=== PATIENT | female | born 1955 | race African-American/Black ===

== ENCOUNTER 2017-08-26 17:12 | Inpatient (IN) | payer BC, OTHER ==
[~2017-08-26] VITALS: Ht 162.6 cm; Wt 92.8 kg
--- NOTE | ~2017-08-26 | EKG ---
[place] [address] [facility] [place] [address] ELECTROCARDIOGRAM REPORT Name: ESTELLE FIGUEROA Jono Room #: 208-P ADM IN M.R.#: [id number] Admission: 08/26/17 Attend Phys: Collette Thao Discharge: Date of : 55 Report #: [id number] THIS REPORT FOR: //name// [facility] ED Test Date: 2017-08-26 Test Time: 17:35:49 Pat Name: ESTELLE FIGUEROA Department: Room: 208 Gender: F Director Of Maintenance: SOREN : 1955 Requested By: Elyssa Monahan Order Number: [id number] MD: Miguel Aguilar Measurements Intervals [place] Rate: 98 P: 48 ND: 179 QRS: -15 QRSD: 110 T: 113 QT: 362 QTc: 463 Interpretive Statements Sinus rhythm Consider left atrial enlargement LVH with IVCD and secondary repol abnrm Anterior ST elevation, probably due to LVH No previous ECG available for comparison Electronically Signed On 08-27-2017 9:01:30 FRONT END DRIVER by Miguel Aguilar [email or web address] <ELECTRONICALLY SIGNED> By: Miguel Aguilar MD, [facility] 08/27/17 0901 1735 1735 Miguel Aguilar MD, [facility] /EPI
--- NOTE | ~2017-08-26 | 2DMMODE ---
[facility] [address] [place] [address] 2 D/M-MODE ECHOCARDIOGRAM Name: CAROLINAESTELLE Room #: 208-P ADM IN M.R.#: [id number] Admission: 08/26/17 Attend Phys: Collette Momin Discharge: Date of : 55 Date of Service: 08/27/17 0958 Report #: [id number] THIS REPORT FOR: //name// APPROVED REPORT Study performed: 08/27/2017 08:43:14 EXAM: Comprehensive 2D, Doppler, and color-flow Echocardiogram Patient Location: Echo lab Room #: 208 Status: routine BSA: 1.98 HR: 103 bpm BP: 149/90 mmHg Rhythm: Tachycardia Other Information Study Quality: Good Indications CHF, elevated troponin, short of breath, htn urgency. 2D Dimensions RVDd: 38.37 mm LVEF(%): 53.31 (>50%) IVSd: 14.86 (7-11mm) LVOT Diam: 18.81 (18-24mm) LVDd: 43.11 mm PWd: 14.46 (7-11mm) Ascending Ao: 35.00 (22-36mm) LVDs: 31.37 (25-40mm) Aortic Root: 30.11 mm Farrar's LVEF: 53.31 % Volumes Left Atrial Volume (Systole) Single Plane 4CH: 72.75 mL Single Plane 2CH: 75.44 mL LA ESV Index: 40.00 mL/m2 Aortic Valve AoV Peak Reece.: 3.95 m/s AO Peak Gr.: 62.26 mmHg AO Mean Gr.: 40.26 mmHg AO V2 Mean: 3.09 m/s AO V2 VTI: 59.91 cm AI Vmax: 3.54 m/s AI Camas: 2.99 m/s2 AI PHT: 343.38 ms [facility] [place] [address] [place] [address] 2 D/M-MODE ECHOCARDIOGRAM Name: ESTELLE FIGUEROA Room #: 208-P [facility] IN ..#: [id number] Admission: 08/26/17 Attend Phys: Collette Momin Discharge: Date of : 55 Date of Service: 08/27/17 0958 Report #: [id number] Mitral Valve E/A Ratio: 1.3 MV Decel. Time: 185.88 ms MV E Max Reece.: 2.13 m/s MV A Reece.: 1.65 m/s MV PHT: 53.90 ms IVRT: 50.75 ms Pulmonary Valve PV Peak Reece.: 0.97 m/s PV Peak Gr.: 3.80 mmHg Pulmonary Vein P Vein S: 0.75 m/s P Vein D: 0.83 m/s P Vein S/D Ratio: 0.90 Tricuspid Valve TR Peak Reece.: 3.56 m/s RAP Estimate: 10.00 mmHg TR Peak Gr.: 50.60 mmHg PA Pressure: 61.00 mmHg Left Ventricle The left ventricle is normal size. There is normal LV segmental wall motion. Moderate concentric left ventricular hypertrophy. Left ventricular gradient noted. Peak velocity of 4.2m/s with a peak pressure gradient of 71mmHg. Left ventricular systolic function is hyperdynamic. LVEF is 65-70%. This study is not technically sufficient to allow evaluation of the LV diastolic function. Right Ventricle The right ventricle is normal size. The right ventricular systolic function is normal. Atria Left atrium is moderately dilated. Right atrium is mildly dilated. Aortic Valve The aortic valve is mildly calcified Moderate aortic regurgitation. Mitral Valve Moderately thickened leaflets, restricted leaflet mobility Moderate to severe mitral regurgitation. Moderate mitral stenosis. Max pressure gradient of 20mmHg and mean gradient of 11mmHg. [facility] [address] [place] [address] 2 D/M-MODE ECHOCARDIOGRAM Name: ESTELLE FIGUEROA Room #: 208-P [facility] IN [facility]#: [id number] Admission: 08/26/17 Attend Phys: Collette Momin Discharge: Date of : 55 Date of Service: 08/27/17 0958 Report #: [id number] Tricuspid Valve The tricuspid valve is normal in structure. Mild to moderate tricuspid regurgitation. Estimated PAP is 60mmHg. Pulmonic Valve The pulmonary valve is normal in structure. Trace pulmonic regurgitation. Great Vessels The aortic root is normal in size. The ascending aorta is normal in size. IVC is normal in size and collapses <50% with inspiration. Pericardium There is no pericardial effusion. <Conclusion> Left ventricular systolic function is hyperdynamic. Moderate concentric left ventricular hypertrophy. Left ventricular gradient (Peak velocity of 4.2m/s with a peak pressure gradient of 71mmHg). LVEF is 65-70%. Left atrium is moderately dilated. The aortic valve is mildly calcified, probably not stenotic. Moderate aortic regurgitation. Moderately thickened leaflets, restricted leaflet mobility. Moderately severe to severe mitral regurgitation. Moderate mitral stenosis. Max pressure gradient of 20mmHg and mean gradient of 11mmHg. Mild to moderate tricuspid regurgitation. Estimated pulmonary artery pressure of 60mmHg. There is no pericardial effusion. <ELECTRONICALLY SIGNED> By: Miguel Aguilar MD, [facility] 08/27/17 0958 0958 0958 Miguel Aguilar MD, [facility] /INF
[2017-08-26 17:13] VITALS: BP 226/117
[2017-08-26] MEDS ORDERED: LOSARTAN-HCTZ1 EAC1 PO (17:29)
[2017-08-26 17:54] LABS: HEMATOCRIT 34.5 % (37.0-47.0); HEMOGLOBIN 11.8 gm/dL (12.0-15.0); MCH 30.6 pg (26.0-34.0); MCHC 34.1 g/dL (28.0-37.0); PLATELET COUNT 166 thou/uL (150-400); RBC 3.84 mil/uL (4.20-5.00); RDW 13.7 % (10.5-14.5); WBC 7.4 thou/uL (4.0-11.0)
[2017-08-26 18:01] LABS: CALCIUM 9.4 mg/dL (8.5-10.1); POTASSIUM 3.4 mmol/L (3.5-5.1)
[2017-08-26 18:10] LABS: TROPONIN-I 0.4 ng/mL (<0.06)
[2017-08-26 18:23] LABS: ABSOLUTE NEUTROPHILS 5.3 thou/uL (1.4-8.2)
[2017-08-26 20:38] VITALS: BP 199/101
[2017-08-26 21:11] VITALS: BP 192/96
[2017-08-26 23:30] VITALS: BP 106/62
[2017-08-27 05:07] VITALS: BP 118/76
[2017-08-27 05:25] LABS: ANION GAP 10 mmol/L (7-16); BUN 15 mg/dL (7-18); CALCIUM 8.9 mg/dL (8.5-10.1); CHLORIDE 106 mmol/L (98-107); CHOLESTEROL 175 mg/dL (<200); CO2 26 mmol/L (21-32); CREATININE 1.2 mg/dL (0.6-1.0); GLUCOSE 155 mg/dL (74-106); HDL CHOLESTEROL 71 mg/dL (>40); LDL CHOLESTEROL 96 mg/dL (<100); MAGNESIUM 1.7 mg/dL (1.8-2.4); POTASSIUM 3.7 mmol/L (3.5-5.1); SODIUM 142 mmol/L (136-145); TC:HDL 2.5 Ratio (Not establshd); TRIGLYCERIDE 43 mg/dL (<150); TROPONIN-I 0.38 ng/mL (<0.06); VLDL 9 mg/dL (<40)
[2017-08-27 05:27] LABS: SERUM ASSESSMENT Clear
[2017-08-27 07:58] VITALS: BP 149/90
[2017-08-27 12:31] VITALS: BP 114/54
[2017-08-27 15:41] VITALS: BP 126/72
[2017-08-27 20:40] VITALS: BP 123/62
[2017-08-28 00:05] VITALS: BP 119/60
[2017-08-28 04:04] LABS: CALCIUM 9.5 mg/dL (8.5-10.1); CREATININE 1.2 mg/dL (0.6-1.0); POTASSIUM 3.9 mmol/L (3.5-5.1)
[2017-08-28 05:00] VITALS: BP 130/72
[2017-08-28 07:33] VITALS: BP 142/86
[2017-08-28] MEDS ORDERED: LASIX 20 MG TAB20 MG PO (08:25)
[2017-08-28] MEDS ORDERED: SPIRONOLACTONE25 M1 PO (08:25)
[2017-08-28] MEDS ORDERED: LOPRESSOR50 PO (08:25)
[2017-08-28] MEDS ORDERED: COZAAR 50 MG TA50 M1 PO (08:25)
[2017-08-28] MEDS ORDERED: COZAAR 50 MG TA50 M2 PO (09:55)
[2017-08-28] MEDS ORDERED: POTASSIUM CHLO10 MEQ PO (09:55)
[2017-08-28 10:08] VITALS: BP 142/86
[2017-08-28 11:46] VITALS: BP 137/77
[2017-08-28 16:44] VITALS: BP 121/55
== END 2017-08-28 21:48 | disposition home or self-care (01) | DRG 291 ==
LOC: ER 17:12 → 2N 20:05 → EROBS 20:05 → 2N 20:39
PROVIDERS: Emergency Medicine; Internal Medicine; Nurse Practitioner Acute Care
DX: I11.0 Hypertensive heart disease with heart failure (principal); J18.9 Pneumonia, unspecified organism; I38 Endocarditis, valve unspecified; I50.33 Acute on chronic diastolic (congestive) heart failure; J45.909 Unspecified asthma, uncomplicated; I16.0 Hypertensive urgency; E83.42 Hypomagnesemia; D64.9 Anemia, unspecified; I35.1 Nonrheumatic aortic (valve) insufficiency; I05.0 Rheumatic mitral stenosis; Z88.5 Allergy status to narcotic agent; Z88.0 Allergy status to penicillin; Z87.891 Personal history of nicotine dependence
CPT/HCPCS: 10081